=== PATIENT | female | born 1990 | race African-American/Black ===

== ENCOUNTER 2018-03-24 18:34 | Emergency (ER) | payer BC ==
[2018-03-24 18:52] VITALS: BP 124/90; PULSE 118; TEMP 98.3; BMI 33.3
--- NOTE | 2018-03-24 19:13 | PDOC ---
History of Present Illness - General History Source: Patient Exam Limitations: No Limitations - History of Present Illness Initial Comments: 03/24/18 19:39 A portion of this note was documented by scribe services under my direction. I have reviewed the details of the note, within reason, and agree with the documentation with the following case summary and management plan written by me. Patient treated in the ED. Nursing notes are reviewed and incorporated into the medical decision-making. Vital signs reviewed. This is a 28 her old female who was celebrating her birthday at a green party today when she was wearing high heels had a little to drink and fell off of her heels. Patient's complaining of twisting her ankle and pain to the lateral portion of her ankle. There is swelling and tenderness on palpation of the lateral malleolus and base of the fifth metatarsal. X-rays of ankle and foot were done x-rays were interpreted by me there is no acute fracture dislocation or pathology. Patient discharged home with Wilbur wrap and crutches for ambulation. Patient given Motrin for the pain. <Bennett Nguyen I - Last Filed: 03/24/18 19:51> - History of Present Illness Initial Comments: The patient is a 28 year old female, with no significant PMH, who presents to the emergency department today complaining of right ankle pain for 2 days. Patient reports she was wearing heels when she twisted her ankle and immediately felt pain. Patient reports the pain is most prominent on the lateral aspect of the right ankle, with mild pain in the right foot. She notes significant swelling since the incident. Patient also states the pain radiates into her right hip. The patient denies chest pain, shortness of breath, headache and dizziness. Denies fever, chills, nausea, vomit, diarrhea and constipation. Denies dysuria, frequency, urgency and hematuria. PAST MEDICAL HISTORY: no significant history PAST SURGICAL HISTORY: no significant history FAMILY HISTORY: no pertinent history SOCIAL HISTORY: Pt lives with family and is employed. MEDICATIONS: reviewed ALLERGIES: As per nursing notes ROS General: No fevers or chills, no weakness, no weight loss HEENT: No change in vision. No sore throat,. No ear pain CardioVascular: No chest pain or shortness of breath Respiratory:No cough, or wheezing. Gastrointestinal: no nausea, vomiting, diarrhea or constipation, No rectal bleeding Genitourinary: No dysuria, hematuria, or frequency Musculoskeletal: +Right ankle pain. +Mild right foot pain. +Right hip pain. Neurologic: No headache, vertigo, dizziness or loss of consciousness Psychiatric: nor depression Skin: No rashes or easy bruising Endocrine: no increased thirst or abnormal weight change Allergic: no skin or latex allergy All other systems reviewed and normal PE GENERAL: The patient is awake, alert, and fully oriented, in no acute distress. HEAD: Normal with no signs of trauma. EYES: Pupils equal, round and reactive to light, extraocular movements intact, sclera anicteric, conjunctiva clear. EXTREMITIES: +Swelling, ecchymosis, and tenderness on palpation of the right lateral malleolus. +Some tenderness on palpation of lateral right foot. NVD in tact. No tenderness on palpation of the right knee. NEUROLOGICAL: Normal speech, normal gait. PSYCH: Normal mood, normal affect. SKIN: Warm, Dry, normal turgor, no rashes or lesions noted. 03/24/18 20:03 <Gloria Sykes - Last Filed: 03/24/18 20:13> - General Stated Complaint: RIGHT ANKLE PAIN Time Seen by Provider: 03/24/18 19:13 Past History - Past Medical History Asthma: Yes COPD: No - Suicide/Smoking/Psychosocial Hx Smoking History: Never smoked Have you smoked in the past 12 months: No Number of Cigarettes Smoked Daily: 0 Hx Alcohol Use: Yes Drug/Substance Use Hx: No Substance Use Type: None <Bennett Nguyen I - Last Filed: 03/24/18 19:51> <Gloria Sykes - Last Filed: 03/24/18 20:13> - Past Medical History Allergies/Adverse Reactions: Allergies Allergy/AdvReac Type Severity Reaction Status Date / Time No Known Allergies Allergy Verified 03/24/18 18:44 Home Medications: Ambulatory Orders Albuterol Sulfate Inhaler - [Ventolin Hfa Inhaler -] 1 - 2 inh PO QID PRN *Physical Exam - Vital Signs Last Vital Signs Temp Pulse Resp BP Pulse Ox 98.3 F 118 H 16 124/90 100 03/24/18 18:35 03/24/18 18:35 03/24/18 18:35 03/24/18 18:35 03/24/18 18:35 <Bennett Nguyen I - Last Filed: 03/24/18 19:51> - Vital Signs Last Vital Signs Temp Pulse Resp BP Pulse Ox 98.3 F 118 H 16 124/90 100 03/24/18 18:35 03/24/18 18:35 03/24/18 18:35 03/24/18 18:35 03/24/18 18:35 <Gloria Sykes - Last Filed: 03/24/18 20:13> Moderate Sedation - Procedure Monitoring Vital Signs: Procedure Monitoring Vital Signs Temperature 98.3 F 03/24/18 18:35 Pulse Rate 118 H 03/24/18 18:35 Respiratory Rate 16 03/24/18 18:35 Blood Pressure 124/90 03/24/18 18:35 O2 Sat by Pulse Oximetry (%) 100 03/24/18 18:35 <Bennett Nguyen I - Last Filed: 03/24/18 19:51> - Procedure Monitoring Vital Signs: Procedure Monitoring Vital Signs Temperature 98.3 F 03/24/18 18:35 Pulse Rate 118 H 03/24/18 18:35 Respiratory Rate 16 03/24/18 18:35 Blood Pressure 124/90 03/24/18 18:35 O2 Sat by Pulse Oximetry (%) 100 03/24/18 18:35 <Gloria Sykes - Last Filed: 03/24/18 20:13> ED Treatment Course - Medications Given in the ED: ED Medications Discontinued Medications Generic Name Dose Route Start Last Admin Trade Name Jose Manuelq PRN Reason Stop Dose Admin Ibuprofen 600 mg 03/24/18 19:51 03/24/18 20:01 Motrin - PO 03/24/18 19:52 600 mg ONCE ONE Administration <Gloria Sykes - Last Filed: 03/24/18 20:13> *DC/Admit/Observation/Transfer - Discharge Dispostion Decision to Admit order: No <Bennett Nguyen I - Last Filed: 03/24/18 19:51> - Attestations Scribe Attestion: 03/24/18 20:04 Documentation prepared by NIKOLAY Oneill, acting as medical management specialist for Bennett Nguyen MD. <Gloria Sykes - Last Filed: 03/24/18 20:13> Diagnosis at time of Disposition: Moderate left ankle sprain Qualifiers: Encounter type: initial encounter Qualified Code(s): S93.402A - Sprain of unspecified ligament of left ankle, initial encounter - Discharge Dispostion Disposition: HOME Condition at time of disposition: Good - Patient Instructions Additional Instructions: Tylenol or Motrin as needed for the pain. Use your crutches as needed for walking. Return to the emergency department immediately with ANY new, persistent or worsening symptoms. Continue any medications as previously prescribed by your physician. You should follow up with your primary doctor as soon as possible regarding today's emergency department visit. . Please make sure your doctor reviews the results of your emergency evaluation. Thank you for coming to the Emergency Department today for your care. It was a pleasure to see you today. Please note that your evaluation is INCOMPLETE until you follow-up with your doctor. - Post Discharge Activity Forms/Work/School Notes: Back to Work
[2018-03-24] MEDS ORDERED: IBUPROFEN 600 MG TABLET (FP) PO ONE ×3 (19:51→20:00)
== END 2018-03-24 20:06 | disposition home or self-care (01) ==
LOC: FER 18:34
DX: S93.402A Sprain of unspecified ligament of left ankle, initial encounter (principal); X58.XXXA Exposure to other specified factors, initial encounter; Y93.89 Activity, other specified; Y92.89 Other specified places as the place of occurrence of the external cause; J45.909 Unspecified asthma, uncomplicated
CPT/HCPCS: 73610-TC-RT-FY; 73630-TC-RT-FY; 99281-25

== ENCOUNTER 2021-10-10 16:35 | Emergency (ER) | payer BC, OTHER ==
[2021-10-10 16:43] VITALS: BP 122/78; PULSE 76; TEMP 97.8; BMI 34.9
[2021-10-10] MEDS ORDERED: NAPROXEN 500 MG TABLET PO ONE (16:54)
[2021-10-10] MEDS ORDERED: NAPROXEN 500 MG TABLET ONE (17:02)
== END 2021-10-10 18:05 | disposition left against medical advice (07) ==
LOC: FER 16:35
DX: M25.511 Pain in right shoulder (principal); R07.9 Chest pain, unspecified; V49.50XA Passenger injured in collision with unspecified motor vehicles in traffic accident, initial encounter
CPT/HCPCS: 99283-25